=== PATIENT | female | born 1945 | race Caucasian/White ===

== ENCOUNTER 2017-02-19 12:36 | Emergency (ER) | payer BC, OTHER ==
[2017-02-19 12:52] VITALS: BP 109/46; PULSE 62; TEMP 98; BMI 20.9
--- NOTE | 2017-02-19 13:34 | PDOC ---
History of Present Illness - General Chief Complaint: Pain Stated Complaint: PAIN/ SWOLLEN RT ANKLE Time Seen by Provider: 02/19/17 13:28 History Source: Patient Exam Limitations: No Limitations - History of Present Illness Initial Comments: CHIEF COMPLAINT: 71 y/o female c/o right ankle pain. HISTORY OF PRESENT ILLNESS: The patient states her right ankle was hit by a softball 3 weeks ago. She was able to walk but it became swollen and black and blue. She treated it with ice and rest and the swelling is almost completely gone. She states the only reason she is here is because she still has a bump on her right lower leg that all of a sudden became very painful yesterday. She admits the pain has resolved. She denies redness/streaking to affected area and all other symptoms. Vital signs on arrival are within normal limits. REVIEW OF SYSTEMS: GENERAL/CONSTITUTIONAL: No fever/chills. No weakness. No weight change. HEAD, EYES, EARS, NOSE AND THROAT: No change in vision. No ear pain or discharge. No sore throat. MUSCULOSKELETAL: +right lower leg and ankle pain. No neck or back pain. SKIN: No rash or easy bruising. NEUROLOGIC: No headache, vertigo, loss of consciousness, or loss of sensation. PHYSICAL EXAM: VITAL_SIGNS: within normal limits GENERAL_APPEARANCE: alert, cooperative, no obvious discomfort. MENTAL_STATUS: speech clear, oriented X 3, responds appropriately to questions. NEURO: motor intact and sensory intact in injured extremity. EXTREMITIES: good pulse in injured extremity. Right ankle and foot with full flexion, extension, eversion and inversion. Some minimal swelling to right medial malleolus. Small, painful deformity to right distal lower leg without crepitus. No erythema, warmth or streaking to affected area. SKIN: warm, dry, good color. Past History - Past Medical History Allergies/Adverse Reactions: Allergies Allergy/AdvReac Type Severity Reaction Status Date / Time esomeprazole magnesium AdvReac Severe DIARRHEA Verified 02/19/17 12:48 [From Nexium] lansoprazole [From Prevacid] AdvReac Severe DIARRHEA Verified 02/19/17 12:48 pantoprazole sodium AdvReac Severe DIARRHEA Verified 02/19/17 12:48 [From Protonix] atorvastatin calcium AdvReac Intermediate JOINT Verified 02/19/17 12:48 [From Lipitor] SWELLING Home Medications: Ambulatory Orders Levothyroxine [Synthroid -] 100 mcg PO DAILY 06/24/13 Aspirin [Aspirin EC] 81 mg PO DAILY 06/12/14 Ranitidine [Zantac -] 300 mg PO DAILY 06/12/14 Anemia: No Asthma: No Cancer: No Cardiac Disorders: No CVA: No COPD: No CHF: No Dementia: No Diabetes: No GI Disorders: Yes (GERD/BARRETTS ESOPHAGUS) Disorders: No HTN: No Hypercholesterolemia: Yes Liver Disease: No Seizures: No Thyroid Disease: Yes (HYPOTHYROIDISM) - Surgical History Abdominal Surgery: No Appendectomy: No Cardiac Surgery: No Cholecystectomy: Yes (2002) Lung Surgery: No Neurologic Surgery: No Orthopedic Surgery: Yes (LEFT KNEE SCOPE) - Psycho/Social/Smoking Cessation Hx Suicidal Ideation: No Smoking History: Former smoker Have you smoked in the past 12 months: No If you are a former smoker, when did you quit?: 2011 Information on smoking cessation initiated: No Hx Alcohol Use: Yes (SOCIALLY) Drug/Substance Use Hx: No Substance Use Type: Alcohol Hx Substance Use Treatment: No *Physical Exam - Vital Signs Last Vital Signs Temp Pulse Resp BP Pulse Ox 98 F 62 16 109/46 99 02/19/17 12:48 02/19/17 12:48 02/19/17 12:48 02/19/17 12:48 02/19/17 12:48 Medical Decision Making - Medical Decision Making A/P: 71 y/o female here with right ankle pain with minimal deformity x 3 weeks. Suggested an xray. The patient was initially ok with the xray, however , after about 5 minutes she decided she didn't want an xray. She states she does see Dr. Mayer for orthopedics and will follow up with him. The patient was instructed to return to the ER with any worsening or concerning symptoms. The patient verbalizes understanding of all instructions, has no further questions and is awaiting discharge. *DC/Admit/Observation/Transfer Diagnosis at time of Disposition: Right ankle pain Qualifiers: Chronicity: acute Qualified Code(s): M25.571 - Pain in right ankle and joints of right foot - Discharge Dispostion Disposition: HOME Condition at time of disposition: Good - Referrals Referrals: Kris Knight [Primary Care Provider] - Antolin Mayer MD [Staff Physician] - Call tomorrow - Patient Instructions Printed Discharge Instructions: DI for Ankle Pain, How To Perform RICE (Rest, Ice, Compress, Elevate) Additional Instructions: Discharge Instructions: -Please follow up with Dr. Mayer -Follow RICE instructions -Return to the ER with any worsening or concerning symptoms
== END 2017-02-19 14:19 | disposition home or self-care (01) ==
LOC: JERFT 12:36
DX: M25.571 Pain in right ankle and joints of right foot (principal); K21.9 Gastro-esophageal reflux disease without esophagitis; K22.70 Barrett's esophagus without dysplasia; E03.9 Hypothyroidism, unspecified; W21.03XA Struck by baseball, initial encounter; Y93.89 Activity, other specified; Y92.89 Other specified places as the place of occurrence of the external cause
CPT/HCPCS: 99281-25

== ENCOUNTER 2017-11-11 06:20 | Day surgery (SDC) | payer BC ==
[2017-11-03 14:50] VITALS: BMI 22.9
[2017-11-11] MEDS ORDERED: DEXAMETHASONE SOD PHOSPHATE/PF 10 MG/ML SDV ONE (07:51)
[2017-11-11] MEDS ORDERED: MEPIVACAINE HCL/PF 1% 30 ML VIAL ONE (07:51)
[2017-11-11] MEDS ORDERED: MIDAZOLAM HCL 2 MG/2 ML SINGLE DOSE VIAL ONE (07:52)
[2017-11-11] MEDS ORDERED: BUPIVACAINE HCL/PF (5 MG/ML) 30 ML VIAL IJ ONE (07:52)
[2017-11-11] MEDS ORDERED: PROPOFOL 20 ML ONE ×2 (07:58→07:59)
[2017-11-11] MEDS ORDERED: ceFAZolin SODIUM 1 GM VIAL ONE (08:33)
[2017-11-11 10:49] VITALS: BP 112/67; PULSE 67; TEMP 97.8
--- NOTE | 2017-11-11 11:14 | OP ---
DATE OF OPERATION: 11/11/2017 PREOPERATIVE DIAGNOSIS: Left basal joint osteoarthritis. POSTOPERATIVE DIAGNOSIS: Left basal joint osteoarthritis. OPERATIVE PROCEDURE: 1. Left basal joint arthroplasty. 2. Left basal joint tendon transfer. SURGEON: Zulay Mayer MD GRANITE COUNTERTOP INSTALLER: KATARINA Paz ANESTHESIA: Regional. COMPLICATIONS: None. ESTIMATED BLOOD LOSS: Minimal. INDICATIONS FOR PROCEDURE: The patient is a 72-year-old female with the above finding indicated for operative treatment. The risks, benefits, and alternatives were discussed with the patient at length. Proper informed consent was obtained. DESCRIPTION OF PROCEDURE: After proper identification of the patient and the correct operative site, the patient was brought to the operating room and placed supine on the operating table. Prominences were well padded. Sedation was given by the anesthesiologist. Regional anesthesia was given. Left upper extremity was prepped and draped in the usual sterile fashion. Intravenous antibiotics were given. Time-out procedure was performed. Left upper extremity was prepped and draped in the usual sterile fashion. A well-padded tourniquet was placed with a sterile prep. Esmarch bandage used to exsanguinate the left upper extremity. Tourniquet inflated to 250 mmHg. Curvilinear Hawk incision was made over the basal joint. Incision was taken sharply through the skin with blunt and sharp dissection through subcutaneous tissues. Thenar muscles were elevated off the carpometacarpal joint capsule. Carpometacarpal joint capsule was divided longitudinally and elevated off of the carpometacarpal joint. This was found to be severely arthritic. The trapezium was then excised in piecemeal fashion. The thumb metacarpal was held in traction and adduction, and an Arthrex Internal Brace was placed to suspend the trapezium distally. This was done with 2 SwiveLock anchors holding a double-stranded FiberTape suture. This provided excellent stability and length of the metacarpal maintaining the arthroplasty space. Full range of motion was also achieved. The capsule was then repaired securely, and the dorsal tendon was transferred to the dorsal capsule for additional stability. Skin was repaired. Steri-Strips were placed. Splint was placed. Patient was reversed from anesthesia and brought to the recovery room in stable condition. Zak Coleman, the animal care assistant, was integral throughout this procedure. The procedure could not have been performed without a skilled operative animal care assistant. ZULAY MAYER M.D. [facility]/[id number]
== END 2017-11-11 10:50 | disposition home or self-care (01) ==
LOC: FASU 06:20
PROVIDERS: ATTEND Orthopaedic Surgery Hand Surgery
PROC: 0RQT0ZZ Repair Left Carpometacarpal Joint, Open Approach (ICD-10-PCS; principal; 2017-11-11 08:28)
DX: M18.12 Unilateral primary osteoarthritis of first carpometacarpal joint, left hand (principal)